=== PATIENT | male | born 1985 | race Caucasian/White ===

== ENCOUNTER 2020-10-02 11:58 | Observation (INO) ==
[2020-10-02] MEDS ORDERED: SODIUM CHLORIDE 0.9% 1000ML 1,000 ML IV STA (12:17)
--- NOTE | 2020-10-02 12:24 | Emergency Department Note ---
Impression & Plan Acute cholecystitis, Vomiting, RUQ abdominal pain, Leukocytosis ED Provider Note NAME: RAVINDRA DUNCAN AGE: 35 SEX: M : 1985 ARRIVES VIA: Walk-In INFORMANT: [Patient] ED PROVIDER(S): [Vijay García MD] CHIEF COMPLAINT: Abdominal pain HISTORY OF PRESENT ILLNESS: The patient is a 35-year-old male presents with intermittent right upper quadrant abdominal pain for the last few months. He states that he seems to notice it more so when he eats greasy, fatty food. 2 days ago, he had a severe episode that led to some vomiting. Today, he had a short-lived episode. He is concerned about his gallbladder. There has been no fever, no cough, cold or congestion. No diarrhea. He states he actually thinks he might be slightly constipated as he has had no bowel movement in about 2 days. No urinary complaints. He has no history of abdominal surgeries. His pain has been as bad as a 9. It is currently minimal. REVIEW OF SYSTEMS: See HPI for pertinent positives and negatives. A total of ten systems were reviewed and were otherwise negative. PMHx/PSHx: See Below SOCIAL HISTORY: See Below. PHYSICAL EXAM: GENERAL: Patient is in no acute distress. HEENT: No acute trauma, normocephalic atraumatic, mucous membranes moist, no nasal congestion, no scleral icterus. NECK: No stridor, no adenopathy, no meningismus, trachea is midline. LUNGS: Clear to auscultation bilaterally, no wheeze, no rhonchi, breath sounds equal. HEART: Without murmurs gallops or rubs, regular rate and rhythm. ABDOMEN: Soft, moderately tender in the right upper quadrant, bowel sounds positive, no hernias, no peritonitis. EXTREMITIES: No cyanosis or edema, full range of motion of all the joints without pain or difficulty, no signs for acute trauma. NEUROLOGIC: Oriented x 3, no acute motor or sensory deficits, no focal weakness. SKIN: No rash, no jaundice, no diaphoresis. DIFFERENTIAL DIAGNOSIS: Appendicitis, testicular torsion, infections, diverticulitis, UTI, obstruction, mesenteric ischemia, aortic pathology, inflammatory bowel disease, renal colic, PUD, pancreatitis, biliary pathology, hernia, volvulus, constipation, as well as other pathologies. EMERGENCY DEPARTMENT COURSE/PROCEDURES: MEDICAL DECISION MAKING: There is a mild leukocytosis which would be consistent with infection. There is no anemia. There is a normal platelet count. No significant electrolyte abnormality or kidney failure. There is some subtle elevation to the AST and ALT, the alk phos and bilirubin are normal. There is no evidence for pancreatitis. Urinalysis does not show infection. Covid testing is pending. Chest film does not show pneumonia or free air. Gallbladder ultrasound shows a dilated gallbladder with some borderline thickened gallbladder wall. Gallstones were seen. No free fluid around the gallbladder. On exam, the patient was tender in the right upper quadrant. Patient was given IV Zosyn as antibiotic coverage. He was given IV saline, 1 L. He received IV Toradol and IV Zofran. The patient appears to have an early acute cholecystitis. I do think a hospital stay is warranted. I did contact general surgery. The patient was seen by general surgery and is being hospitalized. The patient is aware of his findings, case management has been involved. Past Med/Surg History Medical History No significant medical problems Social History Smoking Status: Never smoker Feels Safe at Home: Yes Allergies Allergies Allergy/AdvReac Type Severity Reaction Status Date / Time cat dander Allergy Intermediate sneezing/itchy Unverified 10/02/20 13:51 water eyes Home Meds Home Medications Medication Instructions Recorded Confirmed escitalopram oxalate [Lexapro] 10 mg PO QAM 10/02/20 10/02/20 escitalopram oxalate [Lexapro] 20 mg PO QAM 10/02/20 10/02/20 hydroxyzine HCl 20 mg PO TID PRN 10/02/20 10/02/20 Results & Data (ED) Vital Signs Vital Signs - 24 hr 10/02/20 12:03 10/02/20 13:57 Temperature 36.4 C L Temperature Source Temporal Artery Scan Pulse Rate 83 Pulse Rate [Finger] 80 Pulse Rhythm [Finger] Regular Respiratory Rate 18 18 Respiratory Effort / Characteristics Non-Labored Non-Labored Spontaneous Respiratory Depth Normal Normal Blood Pressure 128/79 Blood Pressure [Left Arm] 154/71 H Blood Pressure Mean 95 Blood Pressure Mean [Left Arm] 98 Blood Pressure Position [Left Arm] Sitting Pulse Oximetry 97 96 Oxygen Delivery Method Room Air Room Air Sepsis Recent Fever Within 48 Hours No Sepsis New/Unexplained Change in Mental Status No Sepsis Action Taken by Nursing No Action Required Home Medications Current Medication List: was personally reviewed by me Laboratory Data Attestation: I reviewed the patient's lab results. Result diagrams: 10/02/20 12:25 10/02/20 12:25 Lab Results 10/02/20 10/02/20 10/02/20 Range/Units 12:25 12:25 13:50 WBC 13.10 H (4.8-10.8) K/uL RBC 4.59 L (4.7-6.1) M/uL Hgb 14.5 (14.0-18.0) g/dL Hct 41.3 L (42-52) % MCV 90.0 (80-100) fL MCH 31.6 (25-34) pg MCHC 35.1 (32-36) g/dL RDW Std Deviation 39.5 (36.4-46.3) fL RDW Coeff of Alexy 12.1 (11.5-14.5) % Plt Count 231 (130-400) K/uL MPV 9.0 (7.4-10.4) fL Immature Gran % (Auto) 0.2 % Neut % (Auto) 82.3 % Lymph % (Auto) 7.9 % [place] % (Auto) 7.9 % Eos % (Auto) 1.5 % Baso % (Auto) 0.2 % Neut # (Auto) 10.79 H (1.4-6.5) K/uL Lymph # (Auto) 1.04 L (1.2-3.4) K/uL [place] # (Auto) 1.03 H (0.11-0.59) K/uL Eos # (Auto) 0.19 (0-0.5) K/uL Baso # (Auto) 0.02 (0-0.2) K/uL Immature Gran # (Auto) 0.03 H (0.00-0.02) K/uL Sodium 138 (136-145) mmol/L Potassium 3.9 (3.5-5.1) mmol/L Chloride 104 (98-107) mmol/L Carbon Dioxide 29 (21-32) mmol/L Anion Gap 5.0 (3-11) BUN 9 (7-18) mg/dl Creatinine 0.95 (0.6-1.4) mg/dl Est Cr Clr Drug Dosing 154.4 ml/min Est GFR ( Amer) 118.9 ml/min Est GFR (Non-Af Amer) 102.6 ml/min BUN/Creatinine Ratio 8.9 L (10-20) Glucose 102 H (70-99) mg/dl Calcium 9.2 (8.5-10.1) mg/dl Total Bilirubin 1.0 (0.2-1) mg/dl AST 77 H (15-37) U/L ALT 100 H (12-78) U/L Alkaline Phosphatase 77 (45-117) U/L Total Protein 8.1 (6.4-8.2) gm/dl Albumin 4.0 (3.4-5.0) gm/dl Globulin 4.1 H (2.5-4.0) gm/dl Albumin/Globulin Ratio 1.0 (0.9-2) Lipase 74 (73-393) U/L Urine Color Urine Appearance (Clear) Urine pH (4.5-7.5) Ur Specific [place] (1.000-1.030) Urine Protein (Negative) Urine Glucose (UA) (Negative) Urine Ketones (Negative) Urine Blood (Negative) Urine Nitrite (Negative) Urine Bilirubin (Negative) Urine Urobilinogen (Negative) Ur Leukocyte Esterase (Negative) COVID-19 Eval Order Covid19 at [facility] 10/02/20 Range/Units Unknown WBC (4.8-10.8) K/uL RBC (4.7-6.1) M/uL Hgb (14.0-18.0) g/dL Hct (42-52) % MCV (80-100) fL MCH (25-34) pg MCHC (32-36) g/dL RDW Std Deviation (36.4-46.3) fL RDW Coeff of Alexy (11.5-14.5) % Plt Count (130-400) K/uL MPV (7.4-10.4) fL Immature Gran % (Auto) % Neut % (Auto) % Lymph % (Auto) % [place] % (Auto) % Eos % (Auto) % Baso % (Auto) % Neut # (Auto) (1.4-6.5) K/uL Lymph # (Auto) (1.2-3.4) K/uL [place] # (Auto) (0.11-0.59) K/uL Eos # (Auto) (0-0.5) K/uL Baso # (Auto) (0-0.2) K/uL Immature Gran # (Auto) (0.00-0.02) K/uL Sodium (136-145) mmol/L Potassium (3.5-5.1) mmol/L Chloride (98-107) mmol/L Carbon Dioxide (21-32) mmol/L Anion Gap (3-11) BUN (7-18) mg/dl Creatinine (0.6-1.4) mg/dl Est Cr Clr Drug Dosing ml/min Est GFR ( Amer) ml/min Est GFR (Non-Af Amer) ml/min BUN/Creatinine Ratio (10-20) Glucose (70-99) mg/dl Calcium (8.5-10.1) mg/dl Total Bilirubin (0.2-1) mg/dl AST (15-37) U/L ALT (12-78) U/L Alkaline Phosphatase (45-117) U/L Total Protein (6.4-8.2) gm/dl Albumin (3.4-5.0) gm/dl Globulin (2.5-4.0) gm/dl Albumin/Globulin Ratio (0.9-2) Lipase (73-393) U/L Urine Color Dark Yellow Urine Appearance Clear (Clear) Urine pH 6.0 (4.5-7.5) Ur Specific [place] 1.020 (1.000-1.030) Urine Protein Negative (Negative) Urine Glucose (UA) Negative (Negative) Urine Ketones Trace H (Negative) Urine Blood Negative (Negative) Urine Nitrite Negative (Negative) Urine Bilirubin Negative (Negative) Urine Urobilinogen Negative (Negative) Ur Leukocyte Esterase Negative (Negative) COVID-19 Eval Order Administered Medications Discontinued Medications Sodium Chloride (Nss 1000ml) 1,000 mls @ 999 mls/hr IV .Q1H1M STA Stop: 10/02/20 13:17 Last Admin: 10/02/20 12:34 Dose: 999 mls/hr Documented by: [id number] Piperacillin Sod/Tazobactam Sod (Zosyn) 4.5 gm in 120 mls @ 240 mls/hr IV NOW ONE Stop: 10/02/20 13:51 Last Admin: 10/02/20 13:47 Dose: 240 mls/hr Documented by: [id number] Ketorolac Tromethamine (Ketorolac Tromethamine 15 Mg/Ml Vial) 15 mg IV NOW STA Stop: 10/02/20 13:18 Last Admin: 10/02/20 13:22 Dose: 15 mg Documented by: [id number] Ondansetron HCl (Ondansetron Inj 2 Mg/Ml 2 Ml Vial) 4 mg IV NOW STA Stop: 10/02/20 13:18 Last Admin: 10/02/20 13:22 Dose: 4 mg Documented by: [id number] Imaging Data Radiologist's Impression: Gallbladder Ultrasound 10/02/20 12:17 US gallbladder HISTORY: 35 years-old Male ruq pain acute right upper quadrant abdominal pain COMPARISON: Chest radiograph of same day TECHNIQUE: Multiple real-time sonographic images of the abdominal right upper quadrant were obtained assessing grayscale appearance and color flow FINDINGS: Pancreas is obscured by bowel gas. Echogenic liver with poor through transmission. No hepatic mass or marginal nodularity. The liver is mildly enlarged measuring up to 18.3 cm. Decreased echogenicity of the right hepatic lobe near the carl hepatis is suggestive of fatty sparing. Normal common bile duct, 3 mm. Stone in sludge-filled gallbladder with mild distention. The gallbladder wall measures the upper limits of normal at 3 mm. No definite pericholecystic fluid. Negative sonographic Massey's sign. The imaged right kidney is unremarkable without hydronephrosis. IMPRESSION: 1. Distended gallbladder with cholelithiasis and gallbladder sludge. The gallbladder wall measures within the upper limits of normal, however there is no appreciable pericholecystic fluid and the sonographic Massey sign was reported as negative. Findings could be correlated with nuclear medicine hepatobiliary scan to exclude acute cholecystitis. 2. No biliary ductal dilation. 3. Hepatic steatosis. ACT 112: Negative or not required by law. The above report was generated using voice recognition software. It may contain grammatical, syntax or spelling errors. Electronically signed by: Zbigniew Bates M.D. 10/02/2020 1:03 PM Chest X-Ray 10/02/20 12:18 XR chest 1V portable HISTORY: 35 years-old Male abd pain acute chest and abdominal pain COMPARISON: None TECHNIQUE: Portable AP view of the chest FINDINGS: Cardiac silhouette is upper limits of normal in size with may be projectional. Mild right hemidiaphragmatic elevation. There is no pneumothorax, pleural effusion, airspace consolidation or overt pulmonary edema. Bones of the chest appear grossly intact. IMPRESSION: No acute process. ACT 112: Negative or not required by law. The above report was generated using voice recognition software. It may contain grammatical, syntax or spelling errors. Electronically signed by: Zbigniew Bates M.D. 10/02/2020 12:43 PM Discharge Plan Visit Data Chief Complaint: GI Assessment Stated Complaint: RUQ PAIN ED Provider: Vijay García Discharge Problem: Acute cholecystitis, Vomiting, RUQ abdominal pain, Leukocytosis Patient Disposition: Admitted As Inpatient Condition: Fair Forms Stand Alone Forms: [employer] Prescriptions Prescriptions: No Action hydroxyzine HCl 10 mg tablet 20 mg PO TID PRN (Reason: .) RF: 0 escitalopram oxalate [Lexapro] 10 mg tablet 10 mg PO QAM RF: 0 escitalopram oxalate [Lexapro] 20 mg tablet 20 mg PO QAM RF: 0 Referrals Referrals: Fernanda Green PA-C [Primary Care Provider] - Discharge Problem: Vomiting Qualifiers: Vomiting type: unspecified Vomiting Intractability: non-intractable Nausea presence: with nausea Qualified Code(s): R11.2 - Nausea with vomiting, unspecified Leukocytosis Qualifiers: Leukocytosis type: unspecified Qualified Code(s): D72.829 - Elevated white blood cell count, unspecified
[2020-10-02 12:26] LABS: Appearance Urine Clear (Clear); Bilirubin Urine Negative (Negative); Blood Urine Negative (Negative); Color Urine Dark Yellow; Glucose Urine UA Negative (Negative); Ketones Urine Trace (Negative); Leukocyte Esterase Urine Negative (Negative); Nitrite Urine Negative (Negative); Protein Urine Negative (Negative); Urobilinogen Urine Negative (Negative)
[2020-10-02 12:34] LABS: Basophils # (auto) 0.02 K/uL (0-0.2); Basophils % (auto) 0.2 %; Eosinophils # (auto) 0.19 K/uL (0-0.5); Eosinophils % (auto) 1.5 %; Hematocrit (blood only) 41.3 % (42-52); Hemoglobin 14.5 g/dL (14.0-18.0); Immature Granulocytes # (auto) 0.03 K/uL (0.00-0.02); Immature Granulocytes % (auto) 0.2 %; Lymphocytes # (auto) 1.04 K/uL (1.2-3.4); Lymphocytes % (auto) 7.9 %; Mean Corpuscular Hemoglobin 31.6 pg (25-34); Mean Corpuscular Hgb Conc 35.1 g/dL (32-36); Monocytes # (auto) 1.03 K/uL (0.11-0.59); Monocytes % (auto) 7.9 %; Neutrophils # (auto) 10.79 K/uL (1.4-6.5); Neutrophils % (auto) 82.3 %; Platelet Count 231 K/uL (130-400); RDW Coefficient of Variation 12.1 % (11.5-14.5); RDW Standard Deviation 39.5 fL (36.4-46.3); Red Blood Count 4.59 M/uL (4.7-6.1)
--- NOTE | 2020-10-02 12:45 | XRay Report ---
XR chest 1V portable HISTORY: 35 years-old Male abd pain acute chest and abdominal pain COMPARISON: None TECHNIQUE: Portable AP view of the chest FINDINGS: Cardiac silhouette is upper limits of normal in size with may be projectional. Mild right hemidiaphra gmatic elevation. There is no pneumothorax, pleural effusion, airspace consolidation or overt pulmona ry edema. Bones of the chest appear grossly intact. IMPRESSION: No acute process. ACT 112: Negative or not required by law. The above report was generated using voice recognition software. It may contain grammatical, syntax o r spelling errors. Electronically signed by: Zbigniew Bates M.D. 10/02/2020 12:43 PM
[2020-10-02 12:54] LABS: BUN Creatinine Ratio 8.9 (10-20); Calcium 9.2 mg/dl (8.5-10.1); Creatinine Clr Calc Pharmacy 154.4 ml/min; Est GFR (African American) 118.9 ml/min; Est GFR (Non-African American) 102.6 ml/min; Potassium 3.9 mmol/L (3.5-5.1)
[2020-10-02 12:57] LABS: Globulin 4.1 gm/dl (2.5-4.0); Total Protein 8.1 gm/dl (6.4-8.2)
--- NOTE | 2020-10-02 13:05 | Ultrasound Report ---
US gallbladder HISTORY: 35 years-old Male ruq pain acute right upper quadrant abdominal pain COMPARISON: Chest radiograph of same day TECHNIQUE: Multiple real-time sonographic images of the abdominal right upper quadrant were obtained assessing grayscale appearance and color flow FINDINGS: Pancreas is obscured by bowel gas. Echogenic liver with poor through transmission. No hepatic mass or marginal nodularity. The liver is mildly enlarged measuring up to 18.3 cm. Decreased echogenicity of the right hepatic lobe near the carl hepatis is suggestive of fatty sparing. Normal common bile nirmala t, 3 mm. Stone in sludge-filled gallbladder with mild distention. The gallbladder wall measures the upper limi ts of normal at 3 mm. No definite pericholecystic fluid. Negative sonographic Massey's sign. The imaged right kidney is unremarkable without hydronephrosis. IMPRESSION: 1. Distended gallbladder with cholelithiasis and gallbladder sludge. The gallbladder wall measures wi thin the upper limits of normal, however there is no appreciable pericholecystic fluid and the sonogr aphic Massey sign was reported as negative. Findings could be correlated with nuclear medicine hepato biliary scan to exclude acute cholecystitis. 2. No biliary ductal dilation. 3. Hepatic steatosis. ACT 112: Negative or not required by law. The above report was generated using voice recognition software. It may contain grammatical, syntax o r spelling errors. Electronically signed by: Zbigniew Bates M.D. 10/02/2020 1:03 PM
[2020-10-02] MEDS ORDERED: KETOROLAC TROMETHAMINE 15 MG/ML VIAL IV STA (13:17)
[2020-10-02] MEDS ORDERED: ONDANSETRON INJ 2 MG/ML 2 ML VIAL IV STA (13:17)
[2020-10-02] MEDS ORDERED: PIPERACILL/TAZOBAC CONSULT ACTIVE PRN (13:22)
[2020-10-02] MEDS ORDERED: PIPERACILLIN/TAZOBACTAM 4.5 GM/120 ML BAG IV ONE (13:22)
--- NOTE | 2020-10-02 14:15 | History & Physical Report ---
Date of Service October 02, 2020 Assessment & Plan (1) Acute cholecystitis: Will plan for admission, IV antibiotics and laparoscopic cholecystectomy in the next 24 hours. History of Present Illness Primary Care Provider: Fernanda Green PA-C 35 y/o male with intermittent RUQ pain for several months becoming more frequent and had his most severe episode on Saturday wiht pain and vomiting. Had some pain today that has improved but came to the ED for evaluation. Usually happens with fatty foods and mother and sister have had cholecystectomy. Allergies Allergy/AdvReac Type Severity Reaction Status Date / Time cat dander Allergy Intermediate sneezing/itchy Unverified 10/02/20 13:51 water eyes Home Medications Medication Instructions Recorded Confirmed Type escitalopram oxalate [Lexapro] 10 mg PO QAM 10/02/20 10/02/20 History escitalopram oxalate [Lexapro] 20 mg PO QAM 10/02/20 10/02/20 History hydroxyzine HCl 20 mg PO TID PRN 10/02/20 10/02/20 History Past Med/Surg History Medical History No significant medical problems Social History Smoking Status: Never smoker Hx Alcohol Use: Yes Alcohol type: beer, wine and hard liquor Hx Substance Use: Yes Last Used Substance: Days (ago) Preferred Language: [place]an Communication Ability: Effective 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 Beliefs That Will Affect Care: None Current Living Situation: Spouse and Family Other Information That Helps Us Care for You: No Feels Safe at Home: Yes Safety Concerns: Feels Safe At This Time Assistive Devices: Glasses Review of Systems Constitutional: + chills; no fever and no anorexia Respiratory: no cough Gastrointestinal: + abdominal pain, + nausea and + vomiting Physical Exam Constitutional: WD/WN, vitals as above Respiratory: normal respiratory effort, lungs clear to auscultation Cardiovascular: RRR, no murmur, no edema Gastrointestinal (Abdomen): Inspection/Auscultation: abdomen not distended Percussion/Palpation: + abdomen tender (mild RUQ) and abdomen soft Skin: no rashes, warm and dry Results & Data Results & Data ([facility]) Vital Signs (Past 12 Hours) Vital Signs Temp Pulse Pulse Resp BP BP Pulse Ox 07/11/21 13:57 80 18 154/71 H 96 10/02/20 12:03 36.4 C L 83 18 128/79 97 Supervising Physician Co-Signing Physician Notes I personally saw and evaluated the patient with Gus Washington PA-C and agree with the assessment and plan 35 yo male with acute cholecystitis -Admit to surgery -Keep NPO -IV ABX -To OR for laparoscopic cholecystectomy, possible open, possible IOC -Consent obtained, risks discussed including bleeding, infection, bile leak, ductal injury PG Care Time/CCT Total # of Minutes Spent Total Time Spent with Patient: Total time spent is greater than 50% in coordination of care (as documented) at patient's floor/unit and/or counseling patient: Coding Level of Care Code 01899 Initial Inpt Care Lvl 2 Diagnoses Acute cholecystitis K81.0
[2020-10-02] MEDS ORDERED: MoRPHine SULFATE 2 MG/ML CARP IV PRN (19:37)
[2020-10-02] MEDS ORDERED: ONDANSETRON INJ 2 MG/ML 2 ML VIAL IV PRN (19:37)
[2020-10-02] MEDS ORDERED: MoRPHine SULFATE 4 MG/ML 1 ML CARP\\VIAL IV PRN (19:37)
[2020-10-02] MEDS ORDERED: hydrOXYzine HCl 10 MG TAB PO PRN (19:37)
[2020-10-02] MEDS ORDERED: ACETAMINOPHEN 325 MG TAB PO PRN (19:37)
[2020-10-02] MEDS ORDERED: AMPICILLIN/SULBACTAM SOD 3,000 MG in 0.9 % SODIUM CHLORIDE 100 ML IV SCH (19:37)
[2020-10-02] MEDS: LACTATED RINGER'S 1,000 ML IV SCH (20:04)
[2020-10-02] MEDS ORDERED: ESCITALOPRAM OXALATE 10 MG TAB PO ONE (20:29)
[2020-10-02] MEDS ORDERED: ESCITALOPRAM OXALATE 20 MG TAB PO ONE (20:32)
[2020-10-02] MEDS: AMPICILLIN/SULBACTAM SOD 3,000 MG in 0.9 % SODIUM CHLORIDE 100 ML IV SCH (21:14)
[2020-10-03] MEDS: AMPICILLIN/SULBACTAM SOD 3,000 MG in 0.9 % SODIUM CHLORIDE 100 ML IV SCH ×4 (01:37→20:54)
[2020-10-03] MEDS: LACTATED RINGER'S 1,000 ML IV SCH ×2 (04:07→17:36)
[2020-10-03] MEDS ORDERED: PROPOFOL IV EMULSION 10 MG/ML 20 ML VIAL IV ONE (06:35)
[2020-10-03] MEDS ORDERED: LIDOCAINE 2% 20 MG/ML 5 ML SYR IV ONE (06:35)
[2020-10-03 07:11] LABS: Basophils # (auto) 0.02 K/uL (0-0.2); Basophils % (auto) 0.3 %; Eosinophils # (auto) 0.19 K/uL (0-0.5); Eosinophils % (auto) 2.6 %; Hematocrit (blood only) 38.4 % (42-52); Hemoglobin 13.3 g/dL (14.0-18.0); Immature Granulocytes # (auto) 0.02 K/uL (0.00-0.02); Immature Granulocytes % (auto) 0.3 %; Lymphocytes % (auto) 16.2 %; Mean Corpuscular Hemoglobin 31.5 pg (25-34); Mean Corpuscular Hgb Conc 34.6 g/dL (32-36); Mean Platelet Volume 9.2 fL (7.4-10.4); Monocytes # (auto) 0.97 K/uL (0.11-0.59); Monocytes % (auto) 13.1 %; Neutrophils # (auto) 5.01 K/uL (1.4-6.5); Neutrophils % (auto) 67.5 %; Platelet Count 203 K/uL (130-400); RDW Coefficient of Variation 12.3 % (11.5-14.5); RDW Standard Deviation 40.8 fL (36.4-46.3); Red Blood Count 4.22 M/uL (4.7-6.1); White Blood Count 7.41 K/uL (4.8-10.8)
[2020-10-03 07:40] LABS: Albumin Level 3.3 gm/dl (3.4-5.0); BUN Creatinine Ratio 8.6 (10-20); Bilirubin Direct 0.5 mg/dl (0-0.2); Calcium 8.5 mg/dl (8.5-10.1); Creatinine Clr Calc Pharmacy 174.2 ml/min; Est GFR (African American) 130.6 ml/min; Est GFR (Non-African American) 112.6 ml/min; Potassium 3.5 mmol/L (3.5-5.1)
[2020-10-03] MEDS: ESCITALOPRAM OXALATE 20 MG TAB PO SCH (07:45)
[2020-10-03] MEDS: ESCITALOPRAM OXALATE 10 MG TAB PO SCH (07:45)
[2020-10-03 07:48] LABS: Bilirubin,Total 1.6 mg/dl (0.2-1); Total Protein 6.9 gm/dl (6.4-8.2)
--- NOTE | 2020-10-03 08:59 | History & Physical Bridge Note ---
Date of Service October 03, 2020 History & Physical Bridge Note I have examined the patient, reviewed the History & Physical and in the interval since the performance of the History & Physical I have noted the following changes of clinical significance: no changes noted
[2020-10-03] MEDS ORDERED: ePHEDrine sulfate 50 MG/ML AMP IV PRN (09:00)
[2020-10-03] MEDS ORDERED: LABETALOL HCL IV 5 MG/ML 20ML IV PRN (09:00)
[2020-10-03] MEDS ORDERED: fentaNYL citrate 100 MCG/2 ML VIAL IV PRN (09:00)
[2020-10-03] MEDS ORDERED: ONDANSETRON INJ 2 MG/ML 2 ML VIAL IV PRN (09:00)
[2020-10-03] MEDS ORDERED: ATROPINE SULFATE 0.1 MG/ML 10ML SYR IV PRN (09:00)
[2020-10-03] MEDS ORDERED: PHENYLEPHRINE 100MCG/ML 5ML SYR IV PRN (09:00)
[2020-10-03] MEDS ORDERED: MEPERIDINE HCL 25 MG/ML CARP/VIAL IV PRN (09:00)
[2020-10-03] MEDS ORDERED: HYDROmorphone INJ 1 MG/ML SYRINGE IV PRN (09:00)
[2020-10-03] MEDS ORDERED: EPINEPHrine INJ 1 MG/ML AMP ONE (09:02)
[2020-10-03] MEDS ORDERED: BUPIVACAINE 0.25% 30 ML VIAL ONE (09:03)
--- NOTE | 2020-10-03 09:03 | Anesthesiology Consultation ---
Date of Service October 03, 2020 Assessment & Plan (1) Encounter for pre-operative examination: Chart Review Chart Review: Acceptable Risk for Surgery and Patient NOT seen in Pre Admission Testing Consults Requested none History Surgery Operation Date: 10/03/20 07:00 Proposed Procedures p Laparoscopic Cholecystectomy, Possible Cholangiogram - Kelvin Barnes, Height/Weight Height: 6 ft 2 in Weight: 129.9 kg Allergies Allergy/AdvReac Type Severity Reaction Status Date / Time cat dander Allergy Intermediate sneezing/itchy Unverified 10/02/20 13:51 water eyes Medications Home Medications Medication Instructions Recorded Confirmed Last Taken escitalopram oxalate [Lexapro] 10 mg PO QAM 10/02/20 10/02/20 10/01/20 escitalopram oxalate [Lexapro] 20 mg PO QAM 10/02/20 10/02/20 10/01/20 hydroxyzine HCl 20 mg PO TID PRN 10/02/20 10/02/20 10/01/20 22:00 Active Medications Generic Name Dose Route Start Last Admin Trade Name Freq PRN Reason Stop Dose Admin Escitalopram Oxalate 10 mg 10/03/20 09:00 10/03/20 07:45 Escitalopram Oxalate 10 Mg Tab PO 11/02/20 08:59 10 mg QAM ALEXANDRA Administration Escitalopram Oxalate 20 mg 10/03/20 09:00 10/03/20 07:45 Escitalopram Oxalate 20 Mg Tab PO 11/02/20 08:59 20 mg QAM ALEXANDRA Administration Lactated Ringer's 1,000 mls @ 125 mls/hr 10/02/20 19:37 10/03/20 04:07 Lr IV 11/01/20 19:36 125 mls/hr .Q8H ALEXANDRA Administration Ampicillin Sodium/Sulbactam 108 mls @ 200 mls/hr 10/02/20 20:00 10/03/20 08:18 Sodium 3,000 mg/ Sodium IV 10/12/20 19:59 Infused Chloride Q6H ALEXANDRA Infusion Protocol Morphine Sulfate 2 mg 10/02/20 19:37 10/02/20 20:04 Morphine Sulfate 2 Mg/Ml Carp IV 10/16/20 19:36 2 mg Q3H PRN Administration Pain (1,2,3,4,5) & Pre PT Morphine Sulfate 4 mg 10/02/20 19:37 10/02/20 23:06 Morphine Sulfate 4 Mg/Ml 1 Ml Carp\Vial IV 10/16/20 19:36 4 mg Q3H PRN Administration Pain (6,7,8,9,10) NPO Date Last Intake of Fluids: 10/02/20 Time Last Intake of Fluids: 22:30 Date Last Intake of Solids: 10/02/20 Time Last Intake of Solids: 19:00 Past Medical History Medical History Anxiety and depression Obesity Social History Smoking Status: Never smoker Hx Alcohol Use: Yes Alcohol type: beer, wine and hard liquor alcohol intake frequency: a few times a week Hx Substance Use: Yes substance use type: marijuana Last Used Substance: Days (ago) Physical Exam Vital Signs Last Vital Signs Temp 36.8 C 10/03/20 08:32 Pulse 82 10/03/20 08:32 Resp 18 10/03/20 08:32 BP 142/69 H 10/03/20 08:32 Pulse Ox 97 10/03/20 08:32 Testing Laboratory Results 10/03/20 06:41 10/03/20 06:41 Urine Color Dark Yellow 10/02/20 Unknown Urine Appearance Clear (Clear) 10/02/20 Unknown Urine pH 6.0 (4.5-7.5) 10/02/20 Unknown Ur Specific [place] 1.020 (1.000-1.030) 10/02/20 Unknown Urine Protein Negative (Negative) 10/02/20 Unknown Urine Glucose (UA) Negative (Negative) 10/02/20 Unknown Urine Ketones Trace (Negative) H 10/02/20 Unknown Urine Nitrite Negative (Negative) 10/02/20 Unknown Ur Leukocyte Esterase Negative (Negative) 10/02/20 Unknown
[2020-10-03] MEDS ORDERED: fentaNYL citrate 100 MCG/2 ML VIAL ONE ×2 (09:05→10:02)
[2020-10-03] MEDS ORDERED: MIDAZOLAM HCL 1 MG/ML 2ML VIAL ONE (09:05)
[2020-10-03] MEDS ORDERED: ONDANSETRON INJ 2 MG/ML 2 ML VIAL ONE (10:31)
[2020-10-03] MEDS ORDERED: NEOSTIGMINE METHYLSULFATE 1 MG/ML 10ML VIAL ONE (10:31)
[2020-10-03] MEDS ORDERED: ROCURONIUM BROMIDE 10 MG/ML 5 ML VIAL IV ONE (10:31)
[2020-10-03] MEDS ORDERED: DEXAMETHASONE SOD INJ 4 MG/ML VIAL ONE (10:31)
[2020-10-03] MEDS ORDERED: GLYCOPYRROLATE 0.2 MG/ML VIAL ONE (10:31)
[2020-10-03] MEDS ORDERED: KETOROLAC 30 MG/ML VIAL ONE (10:31)
--- NOTE | 2020-10-03 11:50 | Post Operative Brief Note ---
PG Immediate Post Op with CF Date of Surgery October 03, 2020 Pre & Post Diagnosis Operation Date: 10/03/20 07:00 Pre-Op Diagnosis: Acute CHOLECYSTITIS Post-Op Diagnosis: Acute CHOLECYSTITIS I identified the patient and participated in the time-out.: Yes Procedure Operation Date: 10/03/20 07:00 Actual Procedures p Laparoscopic Cholecystectomy(Not Applicable) - Kelvin Barnes DO Surgeon Kelvin Barnes DO Bee Raiser Gus Washington PA-C Estimated Blood Loss 25 Findings See Below Acutely inflamed, edematous gallbladder Specimens Specimen Description: A: Gallbladder and Contents Anesthesia Type General Complications none Disposition Disposition: Recovery Room
--- NOTE | 2020-10-03 11:56 | Operative Report ---
PG Post Operative Report Pre & Post Diagnosis Operation Date: 10/03/20 07:00 Pre-Op Diagnosis: Acute CHOLECYSTITIS Post-Op Diagnosis: Acute CHOLECYSTITIS I identified the patient and participated in the time-out.: Yes Procedure Operation Date: 10/03/20 07:00 Actual Procedures p Laparoscopic Cholecystectomy(Not Applicable) - Kelvin Barnes DO Surgeon Kelvin Barnes DO [employer] Supervisor Gus Washington PA-C Estimated Blood Loss 25 Findings See Below Inflamed, edematous gallbladder Fluids see anesthesia record Specimens Gallbladder to pathology Drains None Anesthesia Type General Complications none Disposition Disposition: Recovery Room Indications 35 yo male with acute cholecystitis Description of Procedure The patient was brought to the operating room and placed in the supine position with both arms extended. At this time he underwent general endotracheal anesthesia without any problems. He was given appropriate pre-operative antibiotics. His abdomen was prepped and draped in the usual sterile fashion. A timeout was called, the procedure was verified as Laparoscopic cholecystectomy, possible open, possible intra-operative cholangiogram. Surgical, nursing and anesthesia teams agreed and the procedure was begun. After injection of 0.25% Marcaine with epinephrine, a supraumbilical vertical incision was made and carried down to the fascia using S-retractors. The abdominal wall was then elevated with towel clamps and abdomen entered using the Veress needle confirming position using the saline drop test. Pneumoperitoneum was established. 5mm trocar was placed. Laparoscope was introduced. No injury from entry into the abdomen was visualized after inspection of the abdomen. Three further ports were placed under direct visualization. One 11mm in the subxiphoid region and two 5mm in the RUQ. At this time the abdomen was inspe cted and the gallbladder identified. The gallbladder was edematous and severely inflamed. The gallbladder fundus was grasped and retracted cephalad. The gallbladder infundibulum was then grasped and retracted laterally. The cystic duct and cystic artery were then identified and skeletonized. The critical view of safety was obtained. A cholangiogram was attempted but the catheter was not able to be passed successfully into the cystic duct. The duct and artery were both then clipped twice proximally and once distally and then divided using scissors. The gallbladder was then taken off of the liver bed using electrocautery and placed in an endocatch bag and removed from the subxiphoid port. The liver bed was then inspected and no bile leak or bleeding was evident. The subxiphoid port was then closed using 0-Vicryl using the suture passer. The trocars were then removed under direct visualization and no bleeding was present. Abdomen was desufflated. The skin was then closed using 4-0 Monocryl in a subcuticular fashion. Surgical glue was applied. Needle and sponge counts were correct x 2. At this time the patient was awoken from anesthesia and extubated having remained stable throughout the entire case. The patient was then transported to PACU in stable condition. The physician household assistant was present and scrubbed for the entire case. He was essential in positioning, prepping and draping the patient, driving the laparoscope, retraction and exposure, closure of the incisions and placement of the dressings. I attest to the content of the Intraoperative Record and any orders documented therein. Any exceptions are noted below.
--- NOTE | 2020-10-03 12:51 | Anesthesiology Progress Note ---
Date of Service October 03, 2020 Anesthesia Post Procedure Vital Signs Vital Signs: Temp Pulse Pulse Resp BP Pulse Ox 10/03/20 12:30 83 16 134/74 92 10/03/20 12:20 36.7 C 85 18 159/65 H 94 10/03/20 12:15 92 H 18 159/67 H 94 10/03/20 12:10 36.8 C 84 20 155/73 H 90 10/03/20 12:05 100 H 16 127/68 95 10/03/20 12:00 36.7 C 92 H 16 122/69 91 10/03/20 08:32 36.8 C 82 18 142/69 H 97 10/03/20 07:45 36.9 C 76 18 105/65 94 10/02/20 22:31 37.0 C 82 18 121/74 97 10/02/20 19:35 37.2 C 94 H 16 168/78 H 97 10/02/20 19:00 87 18 131/74 96 10/02/20 16:23 76 18 135/72 10/02/20 15:48 76 18 95 10/02/20 13:57 80 18 154/71 H 96 Pain Intensity Abdomen: Pain Intensity: 3 Right Abdomen: Pain Intensity: 3 Transfer of Care Handoff Completed per policy Notes Mental Status: alert / awake / arousable Patient Amnestic to Procedure: Yes Nausea / Vomiting: adequately controlled Pain: adequately controlled Airway Patency, RR, SpO2: stable & adequate BP & HR: stable & adequate Hydration State: stable & adequate Anesthetic Complications: no major complications apparent and Pt Satisfied with anesthetic care Notes: The patient did well. His postop SpO2 was in the low 90s on oxygen but goes to 99 with incentive spirometry. He will have continuous pulse oximetry. He is awake and comfortable.
[2020-10-03] MEDS ORDERED: MoRPHine SULFATE 4 MG/ML 1 ML CARP\\VIAL IV PRN (13:20)
[2020-10-03] MEDS: MoRPHine SULFATE 2 MG/ML CARP IV PRN ×5 (13:50→23:23)
[2020-10-04] MEDS: LACTATED RINGER'S 1,000 ML IV SCH ×2 (01:49→02:37)
[2020-10-04] MEDS: AMPICILLIN/SULBACTAM SOD 3,000 MG in 0.9 % SODIUM CHLORIDE 100 ML IV SCH ×2 (01:49→07:33)
[2020-10-04] MEDS: MoRPHine SULFATE 2 MG/ML CARP IV PRN ×2 (04:18→08:25)
[2020-10-04 06:35] LABS: Eosinophils # (auto) 0.02 K/uL (0-0.5); Eosinophils % (auto) 0.2 %; Hematocrit (blood only) 34.2 % (42-52); Hemoglobin 11.5 g/dL (14.0-18.0); Immature Granulocytes # (auto) 0.01 K/uL (0.00-0.02); Immature Granulocytes % (auto) 0.1 %; Lymphocytes # (auto) 1.54 K/uL (1.2-3.4); Mean Corpuscular Hemoglobin 31.3 pg (25-34); Mean Corpuscular Hgb Conc 33.6 g/dL (32-36); Mean Corpuscular Volume 92.9 fL (80-100); Mean Platelet Volume 9.3 fL (7.4-10.4); Monocytes # (auto) 0.95 K/uL (0.11-0.59); Monocytes % (auto) 9.2 %; Neutrophils # (auto) 7.78 K/uL (1.4-6.5); Neutrophils % (auto) 75.5 %; Platelet Count 209 K/uL (130-400); RDW Coefficient of Variation 12.1 % (11.5-14.5); RDW Standard Deviation 41.5 fL (36.4-46.3); Red Blood Count 3.68 M/uL (4.7-6.1)
[2020-10-04 07:41] LABS: Albumin Level 3.1 gm/dl (3.4-5.0); BUN Creatinine Ratio 13.2 (10-20); Bilirubin Direct 0.2 mg/dl (0-0.2); Bilirubin,Total 0.6 mg/dl (0.2-1); Calcium 8.4 mg/dl (8.5-10.1); Creatinine Clr Calc Pharmacy 239.8 ml/min; Est GFR (African American) 148.9 ml/min; Est GFR (Non-African American) 128.5 ml/min; Potassium 3.8 mmol/L (3.5-5.1); Total Protein 6.5 gm/dl (6.4-8.2)
--- NOTE | 2020-10-04 07:46 | Surgery Progress Note ---
Date of Service October 04, 2020 Assessment & Plan (1) Acute cholecystitis: POD 1 lap jim, attempted IOC LFTS normalizing advance diet likely d/c later this AM Admission and Anticipated Discharge Date Admission Date: October 02, 2020 Subjective no nausea, tolerating clears Physical Exam Gastrointestinal (Abdomen): Inspection/Auscultation: + abdominal surgical incision (dressing dry) Percussion/Palpation: abdomen soft Results & Data ([facility]) Vital Signs (Past 12 Hours) Vital Signs Temp Pulse Pulse Resp BP Pulse Ox 10/04/20 07:10 36.7 C 67 20 116/70 96 10/04/20 04:11 36.6 C 69 18 114/72 95 10/03/20 22:59 36.9 C 65 18 131/76 94 PG Care Time/CCT Total # of Minutes Spent Total Time Spent with Patient: Total time spent is greater than 50% in coordination of care (as documented) at patient's floor/unit and/or counseling patient: Coding Level of Care Code None Diagnoses Acute cholecystitis K81.0
[2020-10-04] MEDS: ESCITALOPRAM OXALATE 10 MG TAB PO SCH (08:42)
[2020-10-04] MEDS: ESCITALOPRAM OXALATE 20 MG TAB PO SCH (08:42)
[2020-10-04] MEDS ORDERED: oxyCODONE HCL IR 5 MG TAB (IMMEDIATE RELEASE) PO PRN ×2 (08:47)
--- NOTE | 2020-10-04 10:12 | Discharge Summary ---
Date of Service October 04, 2020 Admission HPI Per Admitting Provider 35 y/o male with intermittent RUQ pain for several months becoming more frequent and had his most severe episode on Saturday wiht pain and vomiting. Had some pain today that has improved but came to the ED for evaluation. Usually happens with fatty foods and mother and sister have had cholecystectomy. Principal Diagnosis Acute cholecystitis Discharge Exam Constitutional WD/WN, vitals as above Gastrointestinal (Abdomen) Inspection/Auscultation: + abdominal surgical incision (dressings dry) Percussion/Palpation: abdomen soft Discharge Data Allergies Allergy/AdvReac Type Severity Reaction Status Date / Time cat dander Allergy Intermediate sneezing/itchy Unverified 10/02/20 13:51 water eyes Consultations 10/02/20 13:33 ED Decision to Admit Stat Procedures Performed Operation Date: 10/03/20 07:00 Actual Procedures p Laparoscopic Cholecystectomy(Not Applicable) - Kelvin Barnes, Ordered Studies 10/02/20 12:17 US gallbladder Stat Hospital Course (1) Acute cholecystitis: 35 y/o male presented to the ER with RUQ/epigastric abdominal pain. White count was 13,000 and US showed cholelithiasis/sludge with distention and 3mm wall thickness. He was admitted to the surgical service for IV analgesics and antibiotics overnight and taken to the operating room for laparoscopic cholecystectomy in the morning. Attempt at cholangiogram was made given slight elevation of LFTs, however was not able to be completed safely. IV antibiotics were continued overnight. The next the morning he was able to advance diet and LFTs were normalizing. He was stable for discharge home. Total Time Total Time Spent Total Time Spent (In Minutes): 15 Discharge Plan Discharge Items Patient Disposition: Home - Self-Care Reason For Visit: CHOLECYSTITIS Discharge Diagnosis: laparoscopic cholecystectomy Condition on Discharge: Fair Activity: Per Instructions section Lifting: No more than 10 pounds Bathing Comment: may shower; no soaking in tubs/pools Exercise/Sports: Wait until after follow-up appointment Driving/Machine Use: no driving while taking narcotics for pain Non-emergency contact: Surgeon Call non-emergency contact if: you have any medication questions, your symptoms worsen, your pain is unusual for you, your pain is concerning for you, you have a fever, your temperature is above 101.5, your wound has increased redness, your wound has increased drainage and your wound pain has increased Follow-up/Referrals: Kelvin Barnes, [Physician] - (Please call to schedule follow up in clinic within 1-2 weeks) Fernanda Green PA-C [Primary Care Provider] - Diet: Regular Addtl Attending Provider Instructions: You may purchase Tylenol and/or Ibuprofen over the counter if needed for additional pain control Pending Studies at Discharge: Yes Studies:: surgical pathology Stand-Alone Forms: My [facility] edupristine, Smoking Cessation Medications and DC Order Prescriptions: New oxycodone 5 mg tablet 5 - 10 mg PO .[id number] PRN (Reason: pain, for initial therapy, max 6 tabs per day) Qty: 15 RF: 0 Continued hydroxyzine HCl 10 mg tablet 20 mg PO TID PRN (Reason: .) RF: 0 escitalopram oxalate [Lexapro] 10 mg tablet 10 mg PO QAM RF: 0 escitalopram oxalate [Lexapro] 20 mg tablet 20 mg PO QAM RF: 0 Discharge Orders: Discharge Order (Routine); Ordered 10/04/20 Ordered By: Gus Washington Admission Data Admit Date/Time: 10/02/20 18:22 Attending Provider: Kelvin Barnes Admit Provider: Kelvin Barnes Primary Care Provider: Fernanda Green Other Providers: Kelvin Barnes Coding Level of Care Code D/C DAY MANAGEMENT <30 MINS Diagnoses Acute cholecystitis K81.0
== END 2020-10-04 11:19 | disposition home or self-care (01) ==
LOC: ED 11:58 → 3N 11:58
DX: K81.0 Acute cholecystitis